=== PATIENT | male | born 1985 | race Caucasian/White ===

== ENCOUNTER 2019-07-04 15:22 | Emergency (ER) | payer BC ==
[~2019-07-04] VITALS: Ht 175.3 cm; Wt 79.4 kg
[2019-07-04 16:31] LABS: INFLUENZA A ANTIGEN Negative (Negative); INFLUENZA B ANTIGEN Negative (Negative)
[2019-07-04] MEDS ORDERED: ZOFRAN ODT4 MG PO (16:59)
[2019-07-04] MEDS ORDERED: HYDROCODON-ACE1 EAC7 PO (16:59)
[2019-07-04 17:14] VITALS: BP 110/65
== END 2019-07-04 17:14 | disposition home or self-care (01) ==
LOC: M.ERS 15:22
PROVIDERS: Emergency Medicine
DX: B34.9 Viral infection, unspecified (principal); Z98.890 Other specified postprocedural states